=== PATIENT | female | born 1975 | race Caucasian/White ===

== ENCOUNTER → 2019-03-27 | Outpatient (CLI) | payer BC ==
--- NOTE | 2019-03-27 16:05 | Diagnostic Imaging Report ---
INDICATION: Neck pain. Three views were obtained. FINDINGS: There is straightening of the normal cervical lordosis. Vertebral body heights are well-maintained. There is moderate degenerative disc disease at C5-C6. Prevertebral soft tissues are within normal limits. There is no fracture or traumatic subluxation. The odontoid is intact. The lateral masses are well aligned. Lung apices are clear. IMPRESSION: Moderate degenerative disc disease at C5-C6, otherwise unremarkable. Dictated by: Dictated on workstation # [id number]
--- NOTE | 2019-03-27 16:06 | Diagnostic Imaging Report ---
Shoulder pain. 3 views were obtained. FINDINGS: The alignment is normal. There is no fracture or dislocation. The left lung is clear. Soft tissues are unremarkable. IMPRESSION: Unremarkable left shoulder. Dictated by: Dictated on workstation # [id number]
== END ==
LOC: RAD 15:27
PROVIDERS: ATTEND Nurse Practitioner Family
DX: M50.323 Other cervical disc degeneration at C6-C7 level (principal); M25.512 Pain in left shoulder
CPT/HCPCS: 72040; 73030